=== PATIENT | male | born 1965 | race Caucasian/White ===

== ENCOUNTER → 2023-02-14 | Day surgery (SDC) | payer MEDICAID ==
[~2023-02-14] VITALS: Ht 165.1 cm; Wt 83.9 kg
[~2023-02-14] MED LIST: AMLO5TAB88 PO; BUPIVACAINE HCL/PF 0.5% (5MG/ML) 10ML ONE; EPHEDRINE SULFATE 50MG/ML VIAL ONE; FENTANYL CITRATE/PF 50MCG/ML 2ML VIAL IV PRN; FENTANYL CITRATE/PF 50MCG/ML 2ML VIAL ONE; LACTATED RINGERS 1,000 ML IV SCH; LIDOCAINE HCL 1% 10 MG/ML 10ML VIAL ONE; ONDANSETRON HCL 4MG/2ML INJ ONE; PROPOFOL 200MG/20ML VIAL IV ONE; SIMV-43 PO; SKIN ADHESIVE 0.7 GM EA TOP ONE; SUCCINYLCHOLINE CHLORIDE 200MG/10ML IV ONE
== END | disposition home or self-care (01) ==
LOC: OR 05:36
PROVIDERS: ATTEND Surgery
DX: K40.90 Unilateral inguinal hernia, without obstruction or gangrene, not specified as recurrent (principal); E78.00 Pure hypercholesterolemia, unspecified; Z79.899 Other long term (current) drug therapy
CPT/HCPCS: 49505; C1781; J0330; J2405; J2704; J3010; J3490

== ENCOUNTER 2023-08-20 19:14 | Emergency (ER) | payer MEDICAID, OTHER ==
[~2023-08-20] VITALS: Ht 165.1 cm; Wt 85.1 kg
[~2023-08-20 19:14] MED LIST changes: -BUPIVACAINE HCL/PF 0.5% (5MG/ML) 10ML ONE; -EPHEDRINE SULFATE 50MG/ML VIAL ONE; -FENTANYL CITRATE/PF 50MCG/ML 2ML VIAL IV PRN; -FENTANYL CITRATE/PF 50MCG/ML 2ML VIAL ONE; -LACTATED RINGERS 1,000 ML IV SCH; -LIDOCAINE HCL 1% 10 MG/ML 10ML VIAL ONE; -ONDANSETRON HCL 4MG/2ML INJ ONE; -PROPOFOL 200MG/20ML VIAL IV ONE; -SKIN ADHESIVE 0.7 GM EA TOP ONE; -SUCCINYLCHOLINE CHLORIDE 200MG/10ML IV ONE
[2023-08-20 19:43] VITALS: O2SAT 100
[2023-08-20] MEDS ORDERED: HYDROCODONE/ACETAMINOPHEN 5/325MG TABLET PO ONE (20:15)
[2023-08-20] MEDS ORDERED: KETOROLAC 30MG/ML VIAL IM ONE (20:15)
[2023-08-20] MEDS ORDERED: IBUP-2028 MT (20:31)
[2023-08-20] MEDS ORDERED: TOPUD MT (20:31)
[2023-08-20] MEDS ORDERED: HYDROCODONE/ACETAMINOPHEN 5/325MG TABLET PO NR (22:30)
[2023-08-20] MEDS ORDERED: KETOROLAC 30MG/ML VIAL IM NR (22:30)
[2023-08-20 22:56] VITALS: BP 123/68; PULSE 74; RESP 16; TEMP 97.6
== END 2023-08-20 22:57 | disposition home or self-care (01) ==
LOC: ER 19:14
DX: S83.92XA Sprain of unspecified site of left knee, initial encounter (principal); E78.00 Pure hypercholesterolemia, unspecified; I10 Essential (primary) hypertension; X58.XXXA Exposure to other specified factors, initial encounter; Y93.89 Activity, other specified; Y92.89 Other specified places as the place of occurrence of the external cause; Y99.8 Other external cause status
CPT/HCPCS: 99283; 73562; 96372; J1885